=== PATIENT | male | born 1965 | race Caucasian/White ===

== ENCOUNTER 2022-05-02 14:07 | Inpatient (IN) | payer OTHER, SELFPAY ==
[2022-05-02] VITALS (20 sets, daily range): BP systolic 100–151; BP diastolic 57–105; PULSE 54–85; RESP 16–19; TEMP 36.5–37.1; O2SAT 95–100; BMI 30.5; BMI 30.7; BMI 23.1
--- NOTE | 2022-05-02 14:11 | HMH.EDGENADL ---
Discharge Plan Disposition Patient Disposition: Admitted As Inpatient Prescriptions Prescriptions: No Action amlodipine 5 mg tablet 5 mg PO DAILY levothyroxine 50 mcg tablet 50 mcg PO DAILY esomeprazole magnesium [Nexium] 40 mg capsule,delayed release(DR/EC) 40 mg PO DAILY omega 2-yyw-pwm-fish oil [Fish Oil] 1,200 (144-216) mg capsule 1 cap PO DAILY coenzyme Q10 [Co Q-10] 200 mg capsule 200 mg PO DAILY ezetimibe 10 mg tablet 10 mg PO DAILY Label Comments: TAKE 1 TABLET BY MOUTH ONCE DAILY FOR CHOLESTEROL triamterene-hydrochlorothiazid 37.5-25 mg capsule 1 cap PO DAILY ketoconazole 2 % cream topical bisoprolol fumarate 10 mg tablet 10 mg PO DAILY Qty: 90 3RF cetirizine 10 mg Tablet 10 mg PO DAILY Clinical Impressions Clinical Impression: Acute non-ST elevation myocardial infarction (NSTEMI) Discharge ED Provider: Timur Coleman General Adult HPI General Chief complaint: Chest Pain Stated complaint: nstemi Time Seen by Provider: 05/02/22 14:11 History of Present Illness HPI narrative: Patient is a 57-year-old male presenting with a diagnosed NSTEMI and Dr. Ag's office walked over by Dr. Ag himself. Patient is a friend of Dr. Ag's from childhood. States that for the last several weeks has had intermittent exertional chest pain bilateral hand numbness and pain in his jaw. Most recently this morning which occurred at rest. Went to Dr. Ag's office where he had an EKG blood test showing an elevated troponin and an echo which did not show any regional wall motion abnormalities. Dr. Ag attempted to get him admitted directly which was unsuccessful at first and he was registered in the ED at which point I saw him. The patient currently has no chest discomfort and states that he feels well at the moment. Related Data Home Medications Medication Instructions Recorded Confirmed amlodipine 5 mg tablet 5 mg PO DAILY Blood pressure 05/02/22 05/02/22 bisoprolol fumarate 10 mg tablet 10 mg PO DAILY Heart 05/02/22 05/02/22 cetirizine 10 mg tablet 10 mg PO DAILY allergies 05/02/22 05/02/22 coenzyme Q10 200 mg capsule (Co 200 mg PO DAILY Supplement 05/02/22 05/02/22 Q-10) esomeprazole magnesium 40 mg 40 mg PO DAILY GERD 05/02/22 05/02/22 capsule,delayed release (Nexium) ezetimibe 10 mg tablet 10 mg PO DAILY Cholesterol 05/02/22 05/02/22 ketoconazole 2 % topical cream g topical 05/02/22 05/02/22 levothyroxine 50 mcg tablet 50 mcg PO DAILY thyroid 05/02/22 05/02/22 omega 2-dko-jtv-fish oil 1,200 mg 1 cap PO DAILY Supplement 05/02/22 05/02/22 (144 mg-216 mg) capsule (Fish Oil) triamterene 37.5 1 cap PO DAILY blood pressure 05/02/22 05/02/22 mg-hydrochlorothiazide 25 mg capsule Allergies Allergy/AdvReac Type Severity Reaction Status Date / Time Arahrmr-JCU-MuO Reductase AdvReac Intermediate myalgia Verified 05/02/22 12:04 Inhibitor PFSH [facility] Disclaimer: The information contained in this section may have been updated after the patient was seen, as this information can be updated by other users. Medical History (Updated 05/02/22 @ 14:23 by Timur Coleman MD) Abnormal electrocardiogram [ECG] [EKG] Bilateral hand numbness Chest pain Dyspnea Elevated troponin Family history of ischemic heart disease (IHD) HTN (hypertension) NSTEMI (non-ST elevated myocardial infarction) Surgical History (Updated 05/02/22 @ 10:34 by Alyce Alamo) H/O spinal fusion Family History (Updated 05/02/22 @ 10:32 by Alyce Alamo) Father Coronary artery disease Mother Coronary artery disease Grandfather Heart attack Stroke Other Cancer Hypertension Social History (Updated 05/02/22 @ 10:33 by Alyce Alamo) Smoking Status: Never smoker alcohol intake: current current occupational status: employed Travel in the last 8 weeks: None ROS Obtained: Yes All systems reviewed & no
[2022-05-02 14:17] LABS: Coronavirus 19, PCR Not Detected (NotDetected); Influenza A, PCR Not Detected (NotDetected); Influenza B, PCR Not Detected (NotDetected)
--- NOTE | 2022-05-02 14:20 | PC.NURSE ---
HOLGER LIND at
--- NOTE | 2022-05-02 14:27 | ECG_ITS ---
APPROVED REPORT Exam: Resting ECG HR:70 bpm ECG Measurements Heart Rate 70 AXES MA 161 P 28 QRSd 102 QRS -10 QT 393 T -10 QTc 413 Conclusion SINUS RHYTHM NORMAL ECG UNCONFIRMED REPORT Electronically signed by : Jan Bethea MD 05/02/2022 21:00:58
--- NOTE | 2022-05-02 14:41 | IR_ITS ---
APPROVED REPORT Patient Location: Emergent Product Sales Engineer: LAKESHA Perez RT (R) PROCEDURES Selective coronary angiogram Drug-eluting stent deployment to the distal dominant right coronary INDICATION Acute non-ST elevation myocardial infarction, Coronary disease Informed consent was obtained prior to the procedure. COMPLICATIONS None Estimated Blood Loss: less than 10 mls TECHNIQUE One percent lidocaine used to anesthetize the right anterior aspect of the wrist. The right radial artery was accessed via the Seldinger technique. A 6 Kazakh sheath was placed in the right radial artery. 2.5 mg of verapamil, 800 mcg of nitroglycerin, 1mg Lidocaine and 5000 U Heparin were given through the arterial sheath. The papa catheter was also used to perform selective coronary angiogram. At the end the diagnostic angiogram therapeutic heparin was administered giving a therapeutic ACT and the guide catheter was placed in the right coronary followed by Choice PT extra-support wire being placed distally. A 4 mm x 18 mm resolute Daquan stent was deployed at 16 yair reducing the critical stenosis to 0%. SUE II flow was present before the procedure with SUE-3 flow at the end of the procedure. 800 mcg of intracoronary nitroglycerin was administered. After achieving excellent angiograph results the apparatus was removed the sheath was removed good hemostasis was achieved using TR banding patient was transferred to the postop putting in stable condition ANGIOGRAPHIC RESULTS The left main artery Normal The left anterior descending artery Has proximal 20% stenosis with distal 40% stenosis along tortuous bends The circumflex artery Nondominant normal The right coronary artery Massively large dominant with proximal and mid vessel 40% stenoses. Distally the vessel is subtotally occluded with a critical stenosis proximal to a large posterior descending artery and posterior lateral ventricular branch. The posterior descending artery is partially filling via [id number] collaterals. At the end the procedure there was excellent SUE-3 flow with wide patency of the distal vessel with excellent inline flow to the PDA and posterior lateral branch The JOLLY ventriculogram reveals Not performed The left ventricular end-diastolic pressure Not measured IMPRESSION Critical distal dominant right coronary stenosis as described above with successful stenting reducing the critical disease to 0% with 1 drug-eluting stent Diffuse mild to moderate disease throughout the LAD as described above with moderate disease in a large proximal dominant right coronary PLAN 1. Brilinta 90 twice daily plus aspirin 81 mg daily 2. Patient is a candidate for Praluent based on the acute myocardial infarction and intolerance to statins 3. LDL less than 55 his goal 4. Cardiac rehabilitation 5. Avoidance of tobacco products 6. Risk factor modification 7. Continue with bisoprolol 10 mg daily plus ALLISON inhibitor's Electronically signed by : Sherwin Ag MD 05/02/2022 16:03:34
[2022-05-02 14:43] LABS: Troponin I 0.13 ng/ml (0.00-0.034)
--- NOTE | 2022-05-02 14:46 | PC.NURSE ---
lab states will be approx 25 minutes left until swab result
--- NOTE | 2022-05-02 15:03 | PC.NURSE ---
Patient prepped for laborer filter plant per policy. Awaiting laborer filter plant arrival
--- NOTE | 2022-05-02 15:14 | HMH.PHAINT1 ---
Pharmacy Intervention Comments: Medication reconciliation completed using external fill history and list from cardiology clinic
--- NOTE | 2022-05-02 15:20 | PC.NURSE ---
report given to trinh rossi labor economics professor staff. Pt transported to labor economics professor via wheelchair.
[2022-05-02 16:12] LABS: CATHL Activated Clotting Time 230 SEC (74-125)
--- NOTE | 2022-05-02 17:30 | EXP.HP ---
History of Present Illness *Admission Date: 05/02/22 *Reason for visit:: Chief complaint: Chest pain *History of present illness: This is a 57-year-old male that presented to his diesel engine fitter office for concerns of chest pain. He reports chest pain intermittently over the last few days with increased intensity prompting an evaluation by his diesel engine fitter. It is a pressure sensation to his mid chest that radiates to his shoulders with associated shortness of air. His cardiology ECG identified no acute ST-T changes but his troponins were positive. He is admitted to the hospital for unstable angina and plans for left heart catheterization. [facility] Medical History Abnormal electrocardiogram [ECG] [EKG] Bilateral hand numbness Chest pain Dyspnea Elevated troponin Family history of ischemic heart disease (IHD) HTN (hypertension) NSTEMI (non-ST elevated myocardial infarction) Surgical History H/O spinal fusion Family History Father Coronary artery disease Mother Coronary artery disease Grandfather Heart attack Stroke Other Cancer Hypertension Social History Smoking Status: Never smoker alcohol intake: current current occupational status: employed Travel in the last 8 weeks: None Review of Systems Review of Systems Review of systems:: pertinent systems reviewed and negative unless documented below *Cardiovascular Cardiovascular: Reports chest pain, Reports chest pain at rest, Reports chest pain with activity and Reports dyspnea *Respiratory Respiratory: Reports dyspnea Meds Home Medications and Allergies Home Medications Medication Instructions Recorded Confirmed Type amlodipine 5 mg tablet 5 mg PO DAILY Hypertension 05/02/22 05/02/22 History bisoprolol fumarate 10 mg tablet 10 mg PO DAILY Heart 05/02/22 05/02/22 History cetirizine 10 mg tablet 10 mg PO DAILY allergies 05/02/22 05/02/22 History coenzyme Q10 200 mg capsule (Co 200 mg PO DAILY Supplement 05/02/22 05/02/22 History Q-10) esomeprazole magnesium 40 mg 40 mg PO DAILY GERD 05/02/22 05/02/22 History capsule,delayed release (Nexium) ezetimibe 10 mg tablet 10 mg PO DAILY Cholesterol 05/02/22 05/02/22 History ketoconazole 2 % topical cream 1 g topical DAILY PRN Skin 05/02/22 05/02/22 History Cleansing levothyroxine 50 mcg tablet 50 mcg PO DAILY thyroid 05/02/22 05/02/22 History omega 7-akk-rbu-fish oil 1,200 mg 1 cap PO DAILY Supplement 05/02/22 05/02/22 History (144 mg-216 mg) capsule (Fish Oil) rosuvastatin 10 mg tablet (Crestor) 10 mg PO DAILY HLD 05/02/22 05/02/22 History triamterene 37.5 1 cap PO DAILY Hypertension 05/02/22 05/02/22 History mg-hydrochlorothiazide 25 mg capsule New Prescriptions to Start Prescriptions: Allergies Allergy/AdvReac Type Severity Reaction Status Date / Time Aqmaonx-DRD-NbX Reductase AdvReac Intermediate myalgia Verified 05/02/22 12:04 Inhibitor Exam Data for Last 24 hours Vital signs and Labs for Last 24 Hours: Temp Pulse Resp BP Pulse Ox 98.0 F 58 L 18 100/73 L 95 05/02/22 16:41 05/02/22 16:41 05/02/22 16:41 05/02/22 16:41 05/02/22 16:41 Laboratory Results - last 24 hr 05/02/22 14:09: SARS-CoV-2 (PCR) Not detected, Influenza A Untype (PCR) Not detected, Influenza Type B (PCR) Not detected 05/02/22 14:15: Troponin I 0.13 H 05/02/22 16:49: Activated Clotting Time 230 H* I & O for Last 24 hours: Intake & Output 04/29/22 04/30/22 05/01/22 05/02/22 23:59 23:59 23:59 23:59 Intake Total 485 / 485 Balance 485 / 485 Weight 86.183 kg Constitutional Constitutional: no acute distress *Routine HEENT Exam Head: Present normocephalic Eye: Present EOMI and PERRL ENT: Present mucous membranes moist *Routine Neck Exam Neck: Present supp
[2022-05-03] VITALS: PULSE 60
[2022-05-03 04:00] VITALS: BP 122/71; PULSE 70; PULSE 95; RESP 18; TEMP 36.8; O2SAT 96; BMI 23.3
--- NOTE | 2022-05-03 05:07 | PC.NURSE ---
Pt. has a right wrist site from a cath procedure he had yesterday. He has had no complaints this night/ morning and should be discharged.
[2022-05-03 07:14] VITALS: BP 122/85; PULSE 65; RESP 17; TEMP 36.6; O2SAT 98
--- NOTE | 2022-05-03 07:19 | EXP.DC.SUM ---
General Admission date:: 05/02/22 Discharge date: 05/03/22 HPI HPI HPI: This is a 57-year-old male that presented to his manual equipment mechanic office for concerns of chest pain. He reports chest pain intermittently over the last few days with increased intensity prompting an evaluation by his manual equipment mechanic. It is a pressure sensation to his mid chest that radiates to his shoulders with associated shortness of air. His cardiology ECG identified no acute ST-T changes but his troponins were positive. He is admitted to the hospital for unstable angina and plans for left heart catheterization. Hospital Course Hospital Course Hospital Course: 57-year-old male admitted for NSTEMI with concern for coronary artery disease. Taken for left heart cath on 05/02/2022. Received drug-eluting stent to the RCA. Echo obtained showing normal ejection fraction. Patient initiated on goal-directed therapy with Brilinta 90 mg twice daily, aspirin 81 mg daily, bisoprolol 10 mg daily, irbesartan 75 mg daily, and Lipitor 40 mg daily. Blood pressure well controlled during admission. Would benefit from close follow-up with cardiology to make further adjustment in the outpatient setting. Hemodynamically stable for discharge home. ? Exam Data for Last 24 hours Vital signs and Labs for Last 24 Hours: Temp Pulse Resp BP Pulse Ox 98.2 F 95 H 18 122/71 96 05/03/22 04:00 05/03/22 04:00 05/03/22 04:00 05/03/22 04:00 05/03/22 04:00 Laboratory Results - last 24 hr 05/02/22 14:09: SARS-CoV-2 (PCR) Not detected, Influenza A Untype (PCR) Not detected, Influenza Type B (PCR) Not detected 05/02/22 14:15: Troponin I 0.13 H 05/02/22 16:49: Activated Clotting Time 230 H* I & O for Last 24 hours: Intake & Output 04/30/22 05/01/22 05/02/22 05/03/22 23:59 23:59 23:59 23:59 Intake Total 485 / 485 1000 / 1000 Output Total 350 / 350 Balance 485 / 485 650 / 650 Weight 79.634 kg 79.64 kg Constitutional Constitutional: no acute distress and average body habitus *Routine HEENT Exam Head: Present normocephalic Eye: Present EOMI and PERRL ENT: Present mucous membranes moist *Routine Neck Exam Neck: Present supple; Absent lymphadenopathy *Routine Respiratory Exam Respiratory: Present CTA bilaterally *Routine Cardiovascular Exam Cardiovascular: Present RRR *Routine Abdominal Exam Abdominal: Present soft and normoactive bowel sounds; Absent tenderness *Routine Rectal Exam Patient deferred: visual exam *Routine Exam Patient deferred: penile exam *Routine Extremities Exam Extremities: Absent cyanosis, clubbing or edema *Routine Skin Exam Skin: Present warm; Absent rash *Routine Neurological Exam Neurological: Present alert, oriented X3, CN II-XII intact, moving all extremities and normal speech; Absent altered mental status or facial asymmetry Results Data Completed and Pending Labs on day of discharge: Labs from last 24 hours 05/02/22 05/02/22 05/02/22 16:49 14:15 14:09 Activated Clotting Time 230 H* Troponin I 0.13 H SARS-CoV-2 (PCR) Not detected Influenza A Untype (PCR) Not detected Influenza Type B (PCR) Not detected DS: Diagnosis Discharge Diagnosis (1) NSTEMI (non-ST elevated myocardial infarction): Status: Acute (2) Coronary artery disease: Status: Acute (3) HTN (hypertension): Status: Acute Meds Home Medications and Allergies Home Medications Medication Instructions Recorded Confirmed Type cetirizine 10 mg tablet 10 mg PO DAILY allergies 05/02/22 05/02/22 History coenzyme Q10 200 mg capsule (Co 200 mg PO DAILY Supplement 05/02/22 05/02/22 History Q-10) ezetimibe 10 mg tablet 10 mg PO DAILY Cholesterol 05/02/22 05/02/22 History ketoconazole 2 % topical cream 1 g topical DAILY PRN Skin 05/02/22 05/02/22 History Cleansing levothyroxine 50 mcg tablet 50 mcg PO DAILY thyroid 05/02/22 05/02/22 History omega 2-mwx-wah-fish oil 1,200 mg 1 cap PO DAILY Supplement 05/02/22
[2022-05-03 08:00] VITALS: PULSE 70
--- NOTE | 2022-05-03 09:22 | EXP.CARD.CON ---
History of Present Illness History of Present Illness Consult date: 05/03/22 Requesting physician: Samson Swanson Consult reason: chest pain Chief complaint: Nstemi History of present illness: Office note from 05/02/[address] Ag: New patient for chest pain/dyspnea/htn Reports cp & pressure Reports numbness/tingling in both arms and hands BP elevated. HLD-unable to tolerate statin, on Zetia. Strong family hx of CAD. PLAN: Echo-cp/dyspnea-today Bisoprolol 10mg daily BMP/CBC/Thyroid profile/Liver Lipid Profile/Mag/troponin RTC today This document was scribed by me Chayito Garcia RN for Sherwin Ag MD. ADDENDUM: Echo-normal ef positive troponin 0.14 Send to ER for evaluation and cardiac cath This document was scribed by me Chayito Garcia RN for Sherwin Ag MD. Plan Details [facility] 05/03/2022 ANGIOGRAPHIC RESULTS The left main artery Normal The left anterior descending artery Has proximal 20% stenosis with distal 40% stenosis along tortuous bends The circumflex artery Nondominant normal The right coronary artery Massively large dominant with proximal and mid vessel 40% stenoses.? Distally the vessel is subtotally occluded with a critical stenosis proximal to a large posterior descending artery and posterior lateral ventricular branch.? The posterior descending artery is partially filling via [id number] collaterals. ?At the end the procedure there was excellent SUE-3 flow with wide patency of the distal vessel with excellent inline flow to the PDA and posterior lateral branch The JOLLY ventriculogram reveals Not performed The left ventricular end-diastolic pressure Not measured IMPRESSION Critical distal dominant right coronary stenosis as described above with successful stenting reducing the critical disease to 0% with 1 drug-eluting stent Diffuse mild to moderate disease throughout the LAD as described above with moderate disease in a large proximal dominant right coronary PLAN 1. Brilinta 90 twice daily plus aspirin 81 mg daily 2. Patient is a candidate for Praluent based on the acute myocardial infarction and intolerance to statins 3. LDL less than 55 his goal 4. Cardiac rehabilitation 5. Avoidance of tobacco products 6. Risk factor modification 7. Continue with bisoprolol 10 mg daily plus ALLISON inhibitor's [facility] Disclaimer: The information contained in this section may have been updated after the patient was seen, as this information can be updated by other users. Medical History Abnormal electrocardiogram [ECG] [EKG] Bilateral hand numbness Chest pain Dyspnea Elevated troponin Family history of ischemic heart disease (IHD) HTN (hypertension) NSTEMI (non-ST elevated myocardial infarction) Surgical History H/O spinal fusion Family History Father Coronary artery disease Mother Coronary artery disease Grandfather Heart attack Stroke Other Cancer Hypertension Social History Smoking Status: Never smoker alcohol intake: current current occupational status: employed Travel in the last 8 weeks: None Review of Systems Review of Systems Review of systems:: pertinent systems reviewed and negative unless documented below *Cardiovascular Cardiovascular: Reports chest pain and Reports dyspnea *Respiratory Respiratory: Reports dyspnea Exam Data for Last 24 hours Vital signs and Labs for Last 24 Hours: Temp Pulse Resp BP Pulse Ox 97.8 F 70 17 122/85 98 05/03/22 07:14 05/03/22 08:00 05/03/22 07:14 05/03/22 07:14 05/03/22 07:14 Laboratory Results - last 24 hr 05/02/22 14:09: SARS-CoV-2 (PCR) Not detected, Influenza A Untype (PCR) Not detected, Influenza Type B (PCR) Not detected 05/02/22 14:15: Troponin I 0.13 H 05/02/22 16:49: Activated Clotting Time 2
[2022-05-03 10:56] VITALS: BP 126/78; PULSE 68; RESP 18; TEMP 36.9; O2SAT 99
--- NOTE | 2022-05-03 12:12 | HMH.PHACL ---
[facility] [employer] Worker Discharge Med Internet Marketing Manager: Nancy De Paz has received discharge medication counseling on the following medications: ASPIRIN 81 MG DAILY ATORVASTATIN 40 MG HS BISOPROLOL 10 MG DAILY IRBESARTAN 75 MG DAILY BRILINTA 90 MG BID
--- NOTE | 2022-05-04 14:00 | CARE MANAGER ---
Contacted patient related to hospital discharge. Patient states he is doing well. He denies any questions or concerns and has his medications. He is aware of follow up appointments. DEANGELO Salazar
== END 2022-05-03 12:08 | disposition home or self-care (01) | DRG 249 ==
LOC: ER 14:43 → 2ND 15:43
PROVIDERS: Internal Medicine; Admitting Provider Family Medicine; Emergency Provider Student in an Organized Health Care Education/Training Program; Visit Provider Family Medicine
DX: I21.4 Non-ST elevation (NSTEMI) myocardial infarction (principal); I10 Essential (primary) hypertension; Z98.1 Arthrodesis status; I25.10 Atherosclerotic heart disease of native coronary artery without angina pectoris; Z82.49 Family history of ischemic heart disease and other diseases of the circulatory system
CPT/HCPCS: 36415; 80048; 80061; 80076; 83735; 83880; 84439; 84443; 84484; 85025; 85347; 92941; 93005; 93306; 93454; 99152; 99285; C1725; C1769; C1876; C9606; C9803; J1644; Q9967; U0003; U0005

== ENCOUNTER → 2022-05-10 09:10 | Outpatient (CLI) | payer OTHER, SELFPAY ==
[2022-05-10 10:18] LABS: Blood Urea Nitrogen 14 mg/dl (9-20); Estimated Glomerular Filt Rate 77 ml/min (>60); GFR (African American) 94 ML/MIN (>60)
[2022-05-11 10:52] LABS: Hematocrit 43.1 % (42.0-52.0)
== END ==
PROVIDERS: Visit Provider Internal Medicine
DX: I25.10 Atherosclerotic heart disease of native coronary artery without angina pectoris (principal)
CPT/HCPCS: 36415; 82565; 84520; 85014; 85018

== ENCOUNTER → 2022-07-05 07:04 | Outpatient (CLI) | payer OTHER, SELFPAY ==
[2022-07-05 07:56] LABS: Alanine Aminotransferase 44 U/L (12-78); Albumin Level 4.1 g/dl (3.5-5.0); Alkaline Phosphatase 79 U/L (38-126); Aspartate Amino Transferase 31 U/L (17-59); Bilirubin,Indirect 0.4 mg/dL (0.0-0.9); Bilirubin,Total 0.4 mg/dl (0.2-1.3); Bilirubin,Unconjugated 0.5 mg/dL (0.0-1.1); Chol/HDL Ratio 3.7 (1-3.5); Cholesterol 158 mg/dl (140-200); HDL Cholesterol 43 mg/dl (40-60); Total Protein,Serum 6.9 g/dl (6.3-8.2); Triglycerides 223 mg/dl (30-150); VLDL Cholesterol 45 mg/dL (0-40)
[2022-07-05 08:08] LABS: Direct LDL Cholesterol 86.11 mg/dL (100-129)
== END ==
PROVIDERS: PCP Family Medicine; Visit Provider Internal Medicine
DX: I25.10 Atherosclerotic heart disease of native coronary artery without angina pectoris (principal); I10 Essential (primary) hypertension; E78.5 Hyperlipidemia, unspecified; Z72.0 Tobacco use; Z95.5 Presence of coronary angioplasty implant and graft
CPT/HCPCS: 36415; 80061; 80076

== ENCOUNTER → 2022-10-05 08:21 | Outpatient (CLI) | payer OTHER, SELFPAY ==
[2022-10-05 10:01] LABS: Alanine Aminotransferase 44 U/L (12-78); Albumin Level 4.1 g/dl (3.5-5.0); Alkaline Phosphatase 75 U/L (38-126); Aspartate Amino Transferase 34 U/L (17-59); Bilirubin,Indirect 0.4 mg/dL (0.0-0.9); Bilirubin,Total 0.4 mg/dl (0.2-1.3); Bilirubin,Unconjugated 0.6 mg/dL (0.0-1.1); Chol/HDL Ratio 4.3 (1-3.5); Cholesterol 160 mg/dl (140-200); HDL Cholesterol 37 mg/dl (40-60); Triglycerides 203 mg/dl (30-150); VLDL Cholesterol 41 mg/dL (0-40)
[2022-10-05 10:12] LABS: Direct LDL Cholesterol 91.82 mg/dL (100-129)
== END ==
PROVIDERS: PCP Family Medicine; Visit Provider Internal Medicine
DX: I25.10 Atherosclerotic heart disease of native coronary artery without angina pectoris (principal); Z79.899 Other long term (current) drug therapy
CPT/HCPCS: 36415; 80061; 80076

== ENCOUNTER → 2023-01-24 08:21 | Outpatient (CLI) | payer OTHER, SELFPAY ==
[2023-01-24 09:23] LABS: Basophils % 0.3 % (0.1-2.0); Eosinophils # 0.2 K/mm3 (0.0-0.4); Eosinophils % 2.5 % (0.1-12.0); Hematocrit 41.1 % (42.0-52.0); Hemoglobin 13.7 g/dL (14.1-18.0); Lymphocytes # 2.5 K/mm3 (0.7-4.5); Lymphocytes % 29.6 % (10-50); Mean Corpuscular HGB Conc 33.4 g/dL (31.8-35.4); Mean Corpuscular Hemoglobin 31.2 pg (27.0-31.2); Mean Corpuscular Volume 93.5 fl (80-94); Mean Platelet Volume 6.8 fl (7.4-10.4); Monocytes # 0.5 K/mm3 (0.1-1.0); Monocytes % 6.2 % (1.7-9.3); Neutrophils # 5.3 K/mm3 (1.8-7.8); Neutrophils % 61.5 % (37.0-80.0); Platelet Count 376 K/mm3 (142-424); Red Blood Count 4.39 M/mm3 (4.60-6.20); Red Cell Distribution Width 13.5 % (11.5-17.5); White Blood Count 8.6 K/mm3 (4.8-10.8)
[2023-01-24 09:56] LABS: Alanine Aminotransferase 44 U/L (12-78); Albumin Level 4.2 g/dl (3.5-5.0); Alkaline Phosphatase 81 U/L (38-126); Anion Gap 13.5 mEq/L (5-15); Aspartate Amino Transferase 32 U/L (17-59); Bilirubin,Direct 0.1 mg/dl (0.0-0.4); Bilirubin,Indirect 0.3 mg/dL (0.0-0.9); Bilirubin,Total 0.4 mg/dl (0.2-1.3); Bilirubin,Unconjugated 0.3 mg/dL (0.0-1.1); Blood Urea Nitrogen 18 mg/dl (9-20); Calcium 8.7 mg/dl (8.4-10.2); Carbon Dioxide 25 mmol/L (22.0-30.0); Chloride 105 mmol/L (98-107); Chol/HDL Ratio 4.3 (1-3.5); Cholesterol 147 mg/dl (140-200); Estimated Glomerular Filt Rate 69 ml/min (>60); GFR (African American) 84 ML/MIN (>60); Glucose 115 mg/dl (74-100); HDL Cholesterol 34 mg/dl (40-60); Potassium 4.5 mmoL/L (3.5-5.1); Sodium 139 mmol/L (136-145); Total Protein,Serum 7.1 g/dl (6.3-8.2); Triglycerides 151 mg/dl (30-150); VLDL Cholesterol 30 mg/dL (0-40)
[2023-01-24 10:07] LABS: Direct LDL Cholesterol 88.65 mg/dL (100-129)
[2023-01-24 10:12] LABS: Free T4 (Free Thyroxine) 0.86 ng/dl (0.78-2.19)
[2023-01-24 10:25] LABS: Thyroid Stimulating Hormone 2.19 uIU/mL (0.465-4.68)
== END ==
PROVIDERS: PCP Family Medicine; Visit Provider Internal Medicine
DX: E78.5 Hyperlipidemia, unspecified (principal); R53.83 Other fatigue; R06.00 Dyspnea, unspecified; I11.9 Hypertensive heart disease without heart failure; I25.10 Atherosclerotic heart disease of native coronary artery without angina pectoris; R94.31 Abnormal electrocardiogram [ECG] [EKG]; Z95.5 Presence of coronary angioplasty implant and graft; Z72.0 Tobacco use
CPT/HCPCS: 36415; 80048; 80061; 80076; 84439; 84443; 85025

== ENCOUNTER 2023-05-24 08:08 | Outpatient (CLI) | payer OTHER, SELFPAY ==
[2023-05-24 08:29] LABS: Basophils # 0.1 K/mm3 (0-0.2); Basophils % 0.7 % (0.1-2.0); Eosinophils # 0.2 K/mm3 (0.0-0.4); Eosinophils % 2.7 % (0.1-12.0); Hematocrit 41.6 % (42.0-52.0); Hemoglobin 13.7 g/dL (14.1-18.0); Lymphocytes # 2.1 K/mm3 (0.7-4.5); Lymphocytes % 26.6 % (10-50); Mean Corpuscular Hemoglobin 31.3 pg (27.0-31.2); Mean Platelet Volume 7.1 fl (7.4-10.4); Monocytes # 0.6 K/mm3 (0.1-1.0); Monocytes % 7.8 % (1.7-9.3); Neutrophils # 4.9 K/mm3 (1.8-7.8); Neutrophils % 62.2 % (37.0-80.0); Platelet Count 367 K/mm3 (142-424); Red Blood Count 4.38 M/mm3 (4.60-6.20); Red Cell Distribution Width 13.3 % (11.5-17.5); White Blood Count 7.8 K/mm3 (4.8-10.8)
[2023-05-24 08:51] LABS: Chloride 110 mmol/L (98-107); Potassium 4.4 mmoL/L (3.5-5.1); Sodium 143 mmol/L (136-145)
[2023-05-24 08:53] LABS: Alanine Aminotransferase 52 U/L (12-78); Aspartate Amino Transferase 34 U/L (17-59); Bilirubin,Unconjugated 0.4 mg/dL (0.0-1.1); Blood Urea Nitrogen 19 mg/dl (9-20); Estimated Glomerular Filt Rate 77 ml/min (>60); GFR (African American) 93 ML/MIN (>60)
[2023-05-24 08:54] LABS: Albumin Level 4.2 g/dl (3.5-5.0); Alkaline Phosphatase 79 U/L (38-126); Anion Gap 8.4 mEq/L (5-15); Bilirubin,Direct 0.1 mg/dl (0.0-0.4); Bilirubin,Indirect 0.4 mg/dL (0.0-0.9); Bilirubin,Total 0.5 mg/dl (0.2-1.3); Calcium 9.5 mg/dl (8.4-10.2); Carbon Dioxide 29 mmol/L (22.0-30.0); Chol/HDL Ratio 5.2 (1-3.5); Cholesterol 160 mg/dl (140-200); Glucose 129 mg/dl (74-100); HDL Cholesterol 31 mg/dl (40-60); Total Protein,Serum 6.9 g/dl (6.3-8.2); Triglycerides 165 mg/dl (30-150); VLDL Cholesterol 33 mg/dL (0-40)
[2023-05-24 09:05] LABS: Direct LDL Cholesterol 85.87 mg/dL (100-129)
[2023-05-24 09:11] LABS: 25-OH Vitamin D, Total 55.5 ng/mL (30-100)
[2023-05-24 09:24] LABS: Thyroid Stimulating Hormone 2.57 uIU/mL (0.465-4.68)
== END 2023-05-24 23:59 ==
LOC: LAB 11:57
PROVIDERS: PCP Family Medicine; Visit Provider Internal Medicine
DX: I25.10 Atherosclerotic heart disease of native coronary artery without angina pectoris (principal); R94.31 Abnormal electrocardiogram [ECG] [EKG]; I10 Essential (primary) hypertension; E78.5 Hyperlipidemia, unspecified; R53.83 Other fatigue; R73.09 Other abnormal glucose; Z95.5 Presence of coronary angioplasty implant and graft; Z72.0 Tobacco use
CPT/HCPCS: 36415; 80048; 80061; 80076; 82306; 83036; 83735; 84439; 84443; 85025

== ENCOUNTER 2023-07-13 14:06 | Outpatient (CLI) | payer OTHER, SELFPAY ==
[2023-07-13] MEDS: INCLISIRAN SODIUM 284 MG/1.5 ML SYRINGE SQ (14:20)
[2023-07-13 14:21] VITALS: BP 135/70; PULSE 72; RESP 18; O2SAT 99
== END 2023-07-13 14:35 | disposition home or self-care (01) ==
LOC: INF 14:07
PROVIDERS: PCP Family Medicine; Visit Provider Internal Medicine
DX: E78.5 Hyperlipidemia, unspecified (principal)
CPT/HCPCS: 96372; J1306

== ENCOUNTER 2023-10-11 12:04 | Outpatient (CLI) | payer OTHER, SELFPAY ==
[2023-10-11 12:11] VITALS: BP 121/67; PULSE 62; RESP 18; TEMP 36.1; O2SAT 99
[2023-10-11] MEDS: INCLISIRAN SODIUM 284 MG/1.5 ML SYRINGE SQ (12:15)
== END 2023-10-11 12:20 | disposition home or self-care (01) ==
LOC: INF 12:05
PROVIDERS: PCP Family Medicine; Visit Provider Internal Medicine
DX: E78.5 Hyperlipidemia, unspecified (principal)
CPT/HCPCS: 96372; J1306

== ENCOUNTER 2024-04-17 08:19 | Outpatient (CLI) | payer OTHER, SELFPAY ==
[2024-04-17 08:42] LABS: Basophils % 0.4 % (0.1-2.0); Eosinophils # 0.2 K/mm3 (0.0-0.4); Eosinophils % 2.1 % (0.1-12.0); Hematocrit 42.4 % (42.0-52.0); Lymphocytes # 2.3 K/mm3 (0.7-4.5); Lymphocytes % 25.7 % (10-50); Mean Platelet Volume 8.1 fl (7.4-10.4); Monocytes # 0.7 K/mm3 (0.1-1.0); Monocytes % 8.1 % (1.7-9.3); Neutrophils # 5.7 K/mm3 (1.8-7.8); Neutrophils % 63.5 % (37.0-80.0); Platelet Count 330 K/mm3 (142-424); Red Blood Count 4.82 M/mm3 (4.60-6.20); Red Cell Distribution Width 12.8 % (11.5-17.5)
[2024-04-17 09:25] LABS: Albumin Level 4.6 g/dl (3.5-5.0); Chloride 105 mmol/L (98-107)
[2024-04-17 09:26] LABS: Potassium 4.7 mmoL/L (3.5-5.1); Sodium 140 mmol/L (136-145)
[2024-04-17 09:28] LABS: Alanine Aminotransferase 42 U/L (12-78); Anion Gap 11.7 mEq/L (5-15); Aspartate Amino Transferase 31 U/L (17-59); Bilirubin,Direct 0.1 mg/dl (0.0-0.4); Bilirubin,Indirect 0.5 mg/dL (0.0-0.9); Bilirubin,Total 0.6 mg/dl (0.2-1.3); Bilirubin,Unconjugated 0.6 mg/dL (0.0-1.1); Blood Urea Nitrogen 18 mg/dl (9-20); Carbon Dioxide 28 mmol/L (22.0-30.0); Estimated Glomerular Filt Rate 77 ml/min (>60); GFR (African American) 93 ML/MIN (>60); Total Protein,Serum 7.2 g/dl (6.3-8.2)
[2024-04-17 09:29] LABS: Alkaline Phosphatase 92 U/L (38-126); Calcium 9.3 mg/dl (8.4-10.2); Chol/HDL Ratio 2.4 (1-3.5); Cholesterol 88 mg/dl (140-200); Glucose 112 mg/dl (74-100); HDL Cholesterol 36 mg/dl (40-60); Magnesium 1.9 mg/dl (1.6-2.3); Triglycerides 167 mg/dl (30-150); VLDL Cholesterol 33 mg/dL (0-40)
[2024-04-17 09:42] LABS: Direct LDL Cholesterol < 30.00 mg/dL (100-129)
[2024-04-17 09:45] LABS: Free T4 (Free Thyroxine) 0.81 ng/dl (0.78-2.19)
[2024-04-17 09:56] LABS: Hemoglobin A1C 5.9 % (4.0-6.0)
[2024-04-17 10:01] LABS: Thyroid Stimulating Hormone 2.57 uIU/mL (0.465-4.68)
== END 2024-04-17 23:59 | disposition home or self-care (01) ==
LOC: LAB 08:19
PROVIDERS: PCP Family Medicine; Visit Provider Internal Medicine
DX: R73.03 Prediabetes (principal); E78.5 Hyperlipidemia, unspecified; I10 Essential (primary) hypertension; I25.10 Atherosclerotic heart disease of native coronary artery without angina pectoris
CPT/HCPCS: 36415; 80048; 80061; 80076; 83036; 83735; 84439; 84443; 85025